=== PATIENT | male | born 1930 | race Asian ===

== ENCOUNTER 2016-04-12 04:54 | Inpatient (IN) | payer MEDICARE, OTHER ==
[~2016-04-12] VITALS: Ht 165.1 cm; Wt 61.2 kg
[2016-04-12] MEDS ORDERED: MECLIZINE HCL12.5 MG ORAL (05:03)
[2016-04-12] MEDS ORDERED: METFORMIN HCL500 M1 ORAL (05:03)
[2016-04-12] MEDS ORDERED: DICYCLOMINE HCL10 MG PO (05:03)
[2016-04-12] MEDS ORDERED: NEXIUM40 MG ORAL (05:03)
[2016-04-12] MEDS ORDERED: JANUVIA50 MG ORAL (05:03)
[2016-04-12] MEDS ORDERED: MEGESTROL ACETA40 MG PO (05:03)
[2016-04-12] MEDS ORDERED: SINEMET 25-1001 EAC1 ORAL (05:03)
[2016-04-12] MEDS ORDERED: AMLODIPINE BESY10 MG ORAL (05:03)
--- NOTE | 2016-04-12 05:39 | Emergency Room Report ---
History of Present Illness General Chief Complaint: Multiple Trauma/Fall Source: Family Member Present Illness HPI 85 YO M with unknwon medical problems/meds BIBEMS with suspected fall out of bed. Family member states patient hit head but denies LOC. Not sure if on ASA, AC - will need records from PMD. No previous visit here. Family member has pictures on her phone of patient lying naked on floor besides bed, possibly taken after the fall out of bed. Patient is stoic, asymptomatic. No obvious signs of trauma per EMS. Allergies: Coded Allergies: No Known Allergies (Unverified , 04/12/16) Patient History Past Medical History: unable to obtain Past Surgical History: unable to obtain Pertinent Family History: unable to obtain Nursing Documentation-PMH Hx Hypertension: Yes Hx Diabetes: Yes Hx Neurological Problems: Yes - PARKINSONS Review of Systems All Other Systems: limited - unable to obtain Physical Exam Vital Signs Date Time Temp Pulse Resp B/P Pulse Ox O2 Delivery O2 Flow Rate FiO2 04/12/16 04:50 97.3 104 16 155/79 98 Room Air Sp02 EP Interpretation: reviewed, abnormal General Appearance: normal inspection, well appearing, no apparent distress, alert, GCS 15, non-toxic Head: normocephalic, atraumatic Eyes: bilateral eye EOMI, bilateral eye PERRL ENT: normal ENT inspection, hearing grossly normal, normal voice Neck: normal inspection, full range of motion, supple, no bony tend Respiratory: normal inspection, lungs clear, normal breath sounds, no respiratory distress, no retraction, no wheezing Cardiovascular #1: regular rate, rhythm, no edema Gastrointestinal: normal inspection, normal bowel sounds, non tender, soft, no guarding, no hernia Genitourinary: no CVA tenderness Musculoskeletal: normal inspection, back normal, normal range of motion, non- tender, no calf tenderness, pelvis stable, Gil's Sign negative Neurologic: normal inspection, alert, oriented x3, responsive, 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 I attest that this information is true, accurate and complete to the best of my knowledge. I understand that any falsification, omission, or concealment of material fact may subject me to administrative, civil, or criminal liability. This patient warrants hospital admission for extreme of age and has a condition that cannot be treated as outpatient. Diagnostic Impression: Primary Impression: Fall Qualified Codes: W19.XXXA - Unspecified fall, initial encounter Additional Impressions: Leukocytosis Qualified Codes: D72.829 - Elevated white blood cell count, unspecified Hypokalemia ER Course Fall out of bed. Unknown LOC or meds. Or precipitating symptoms Vitals notable for mild tachycardia, hypertension. Afebrile. No obvious trauma on exam Will do CT head, CXR, hip/pelvis and basic labs with ECG EKG Diagnostic Results Rate: normal Rhythm: NSR ST Segments: no acute changes ASA given to the pt in ED: No Rhythm Strip Diag. Results EP Interpretation: yes Rate: 90 Rhythm: NSR, no PVC's, no ectopy Chest X-Ray Diagnostic Results EP Interpretation: Yes Findings: no consolidation, no effusion, no pneumothorax, no acute cardiopulmonary disease Number of Views: 1 Other Impression Pelvis 1 view ED interpretation No acute fx, dislocation or soft tissue injury Hip right 2 view ED interpretation No acute fx, dislocation or soft tissue injury Hip left 2 view ED interpretation No acute fx, dislocation or soft tissue injury Reevaluation Time: 05:55 Last Vital Signs Date Time Temp Pulse Resp B/P Pulse Ox O2 Delivery O2 Flow Rate FiO2 04/12/16 04:50 97.3 104 16 155/79 98 Room Air Status: improved Reevaluation Impression CT head, Xrays of hip/pelvis and CXR unremarkable for acute traumatic process Labs: Leuks 14, hypoK A: Fall, unknown mechanism. ?infection as cause K repleted UA: with +LE, WBCs. No nitrites. Possible source of leukocytosis? Empiric Levoflox given in ED to cover infection. Endorsed to Dr Lopez at 630am for med/surg admission Disposition: ADMITTED INPATIENT Condition: Serious NOEMY SAMUEL M.D. Apr 12, 2016 05:39
[2016-04-12 05:52] LABS: MEAN CORPUSCULAR HEMOGLOBIN 30.7 PG (27.0-31.0); MEAN CORPUSCULAR HGB CONC 34.5 G/DL (32.0-36.0); MEAN CORPUSCULAR VOLUME 89 FL (80-99); MEAN PLATELET VOLUME 6.1 FL (6.5-10.1); PLATELET COUNT 409 K/UL (150-450); RED BLOOD COUNT 4.71 M/UL (4.70-6.10); RED CELL DISTRIBUTION WIDTH 11.8 % (11.6-14.8); WHITE BLOOD COUNT 14.1 K/UL (4.8-10.8)
[2016-04-12 05:53] VITALS: BP 144/76
[2016-04-12 06:11] LABS: TROPONIN I < 0.30 ng/mL (<=0.30)
[2016-04-12 06:14] LABS: ALANINE AMINOTRANSFERASE 11 U/L (3-41); ALBUMIN/GLOBULIN RATIO 1.3 (1.0-2.7); ANION GAP 18 (5-15); ASPARTATE AMINO TRANSFERASE 22 U/L (5-40); CALCIUM 8.7 mg/dL (8.6-10.2); CARBON DIOXIDE 28 mEQ/L (20-30); CHLORIDE 88 mEQ/L (98-107); CREATININE 0.9 mg/dL (0.7-1.2); HEMOLYSIS 3; POTASSIUM 2.9 mEQ/L (3.4-4.9); SODIUM 134 mEQ/L (135-145); TOTAL PROTEIN 5.9 g/dL (6.6-8.7)
[2016-04-12 06:30] LABS: BILIRUBIN,DIRECT 0.3 mg/dL (0.1-0.3)
[2016-04-12 06:52] LABS: CKMB 4.2 ng/mL (< 6.7)
[2016-04-12] MEDS ORDERED: Mylanta II UD 30ml ORAL PRN (07:00)
[2016-04-12] MEDS ORDERED: Miralax 17gm pkt ORAL PRN (07:00)
[2016-04-12] MEDS ORDERED: LORazepam Inj 2mg/ml 1ml IV PRN (07:00)
[2016-04-12] MEDS ORDERED: Zolpidem 5mg tab ORAL PRN (07:00)
[2016-04-12 07:36] LABS: APPEARANCE,URINE CLEAR; KETONES,URINE 3+ (NEGATIVE); LEUKOCYTE ESTERASE ,URINE 1+ (NEGATIVE); NITRITE,URINE NEGATIVE (NEGATIVE); PH,URINE 8 (4.5-8.0); PROTEIN,URINE 1+ (NEGATIVE); UROBILINOGEN,URINE 1 MG/DL (0.0-1.0)
[2016-04-12 07:47] LABS: BACTERIA,URINE FEW /HPF; SQUAMOUS EPITHELIAL CELL,UR OCCASIONAL /LPF (NONE/OCC)
[2016-04-12 08:00] VITALS: BP 145/78
[2016-04-12] MEDS: Sinemet 25/100 tab ORAL SCH ×3 (08:51→18:15)
[2016-04-12] MEDS: Morphine Sulfate 2mg/ml Inj IVP PRN ×2 (11:06→20:55)
[2016-04-12] MEDS: NovoLOG Insulin Flexpen SUBQ SCH ×3 (11:44→20:50)
--- NOTE | 2016-04-12 11:47 | Diagnostic Imaging Report ---
Indication: PAIN, status post fall Technique: spiral acquisitions obtained through the brain. Angled axial and coronal 5 x 5 mm slices were reconstructed. No IV contrast utilized. Radiation dose was minimized using automated exposure control Total dose length product 1523 mGycm. CTDIvol(s) 70 mGy Comparison: none FINDINGS: No acute hemorrhage or edema. No mass effect or midline shift. There is age-related enlargement of the ventricles and extra axial CSF spaces. There is periventricular deep white matter ischemic change. Normal dixon-white differentiation. Visualized orbits are unremarkable. Visualized sinuses are unremarkable. Intact calvarium. IMPRESSION: Chronic and age-related changes. Negative for acute intracranial bleed or mass effect This agrees with the preliminary interpretation provided overnight by [facility] service. The CT scanner at [facility] is accredited by the [employer] and the scans are performed using protocols designed to limit radiation exposure to as low as reasonably achievable to attain images of sufficient resolution adequate for diagnostic evaluation
[2016-04-12 12:00] VITALS: BP 132/77
--- NOTE | 2016-04-12 12:04 | Diagnostic Imaging Report ---
Indication: PAIN Technique: One view of the chest Comparison: none Findings: No acute infiltrates, effusions, or congestion. Tortuous calcified aorta. Normal heart size. Upper mediastinum unremarkable. Impression: No acute process.
--- NOTE | 2016-04-12 12:28 | Diagnostic Imaging Report ---
Indication: TRAUMA, fall Technique: One view of the pelvis, 2 views of both hips Comparison: None Findings: No acute fractures. No dislocations. The joint spaces are preserved. Bones are somewhat osteoporotic. Impression: Negative Note, however, that in elderly osteopenic patients, nondisplaced fractures can easily be occult. Consider cross-sectional imaging if there is high clinical suspicion
[2016-04-12] MEDS: Analgesic Balm 15gm TOPIC SCH ×3 (14:33→20:47)
[2016-04-12 16:00] VITALS: BP 138/74
--- NOTE | 2016-04-12 16:29 | Consultation ---
History of Present Illness General Date patient seen: Apr 12, 2016 Chief Complaint: Multiple Trauma/Fall Referring physician: Dr. Flores Reason for Consultation: Inpatient management Present Illness HPI 85 year old female with hx of DM, dementia, Parkinson, living at home, was taken by paramedics to [facility] with CC of potential fall and ALOC. Pt has multple xrays in ER ruling out any fracture and admitted for ALOC and leukocytosis, electrolyte abnormalities and increased weakness. Allergies: Coded Allergies: No Known Allergies (Unverified , 04/12/16) Medication History Scheduled Amlodipine Besylate* (Amlodipine Besylate*), 10 MG ORAL DAILY, (Reported) Carbidopa/Levodopa 25-100 Mg* (Sinemet 25-100 Mg Tablet*), 1 TAB ORAL THREE TIMES A DAY, (Reported) Dicyclomine Hcl* (Dicyclomine Hcl*), 10 MG PO BID, (Reported) Esomeprazole Magnesium (Nexium), 40 MG ORAL DAILY, (Reported) Meclizine Hcl* (Meclizine*), 12.5 MG ORAL THREE TIMES A DAY, (Reported) Metformin Hcl* (Metformin Hcl*), 500 MG ORAL DAILY, (Reported) Sitagliptin (Januvia), 50 MG ORAL DAILY, (Reported) Miscellaneous Medications Megestrol Acetate (Megestrol Acetate), 40 MG PO, (Reported) Patient History Healthcare decision maker Resuscitation status Full Code Advanced Directive on File Past Medical/Surgical History Past Medical/Surgical History: (1) Diabetes (2) Parkinson disease (3) Dementia Review of Systems All Other Systems: negative except mentioned in HPI Physical Exam Lines, tubes and drains: peripheral HEENT: normocephalic, anicteric Neck: non-tender, normal alignment Respiratory/Chest: chest wall non-tender, lungs clear Cardiovascular/Chest: normal peripheral pulses, regular rhythm Abdomen: normal bowel sounds, non tender Genitourinary/Rectal: normal genital exam Last 24 Hour Vital Signs Date Time Temp Pulse Resp B/P Pulse Ox O2 Delivery O2 Flow Rate FiO2 04/12/16 12:00 97.0 82 19 132/77 95 Room Air 04/12/16 11:36 97.9 04/12/16 08:51 92 139/74 04/12/16 08:00 97.9 93 18 145/78 97 Room Air 04/12/16 07:31 92 19 139/74 97 Room Air 04/12/16 05:53 97.3 85 16 144/76 96 Room Air 04/12/16 04:50 97.3 104 16 155/79 98 Room Air Laboratory Tests Test 04/12/16 04:50 04/12/16 05:41 04/12/16 07:15 White Blood Count 14.1 K/UL (4.8-10.8) H Red Blood Count 4.71 M/UL (4.70-6.10) Hemoglobin 14.5 G/DL (14.2-18.0) Hematocrit 41.9 % (42.0-52.0) L Mean Corpuscular Volume 89 FL (80-99) Mean Corpuscular Hemoglobin 30.7 PG (27.0-31.0) Mean Corpuscular Hemoglobin Concent 34.5 G/DL (32.0-36.0) Red Cell Distribution Width 11.8 % (11.6-14.8) Platelet Count 409 K/UL (150-450) Mean Platelet Volume 6.1 FL (6.5-10.1) L Neutrophils (%) (Auto) % (45.0-75.0) Lymphocytes (%) (Auto) % (20.0-45.0) Monocytes (%) (Auto) % (1.0-10.0) Eosinophils (%) (Auto) % (0.0-3.0) Basophils (%) (Auto) % (0.0-2.0) Sodium Level 134 mEQ/L (135-145) L Potassium Level 2.9 mEQ/L (3.4-4.9) L Chloride Level 88 mEQ/L (98-107) L Carbon Dioxide Level 28 mEQ/L (20-30) Anion Gap 18 (5-15) H Blood Urea Nitrogen 10 mg/dL (7-23) Creatinine 0.9 mg/dL (0.7-1.2) Estimat Glomerular Filtration Rate mL/min (>60) Glucose Level 147 mg/dL (74-106) H Calcium Level 8.7 mg/dL (8.6-10.2) Total Bilirubin 1.3 mg/dL (0.0-1.2) H Direct Bilirubin 0.3 mg/dL (0.1-0.3) Aspartate Amino Transf (AST/SGOT) 22 U/L (5-40) Alanine Aminotransferase (ALT/SGPT) 11 U/L (3-41) Alkaline Phosphatase 93 U/L (40-129) Total Creatine Kinase 115 U/L (38-174) Creatine Kinase MB 4.2 ng/mL (< 6.7) Creatine Kinase MB Relative Index 3.6 Troponin I < 0.30 ng/mL (<=0.30) Total Protein 5.9 g/dL (6.6-8.7) L Albumin 3.4 g/dL (3.5-5.2) L Globulin 2.5 g/dL Albumin/Globulin Ratio 1.3 (1.0-2.7) Urine Color Yellow Urine Appearance Clear Urine pH 8 (4.5-8.0) Urine Specific [place] 1.010 (1.005-1.035) Urine Protein 1+ (NEGATIVE) H Urine Glucose (UA) Negative (NEGATIVE) Urine Ketones 3+ (NEGATIVE) H Urine Occult Blood 1+ (NEGATIVE) H Urine Nitrite Negative (NEGATIVE) Urine Bilirubin Negative (NEGATIVE) Urine Urobilinogen 1 MG/DL (0.0-1.0) H Urine Leukocyte Esterase 1+ (NEGATIVE) H Urine RBC 2-4 /HPF (0 - 0) H Urine WBC 5-10 /HPF (0 - 0) H Urine Squamous Epithelial Cells Occasional /LPF Urine Bacteria Few /HPF (NONE) Height (Feet): 5 Height (Inches): 5.00 Weight (Pounds): 135 Medications Current Medications Medications (Trade) Dose Ordered Sig/Aaron Route PRN Reason Start Time Stop Time Status Last Admin Dose Admin Acetaminophen (Tylenol) 650 mg Q4H PRN ORAL fever 04/12/16 07:00 05/12/16 06:59 Al Hydroxide/Mg Hydroxide (Mylanta II) 30 ml Q6H PRN ORAL dyspepsia 04/12/16 07:00 05/12/16 06:59 Amlodipine Besylate (Norvasc) 10 mg DAILY ORAL 04/12/16 09:00 05/12/16 08:59 04/12/16 08:51 Carbidopa/Levodopa (Sinemet 25/100) 1 ea THREE TIMES A DAY ORAL 04/12/16 09:00 05/12/16 08:59 04/12/16 13:49 Dextrose STAT PRN IV Hypoglycemia 04/12/16 07:00 05/12/16 06:59 Insulin Aspart (NovoLOG) BEFORE MEALS AND HS SUBQ 04/12/16 11:30 05/12/16 11:29 04/12/16 11:44 Lorazepam (Ativan 2mg/ml 1ml) 0.5 mg Q4H PRN IV For Anxiety 04/12/16 07:00 04/19/16 06:59 Menthol/Methyl Salicylate (Bengay) 1 applic FOUR TIMES A DAY TOPIC 04/12/16 14:00 05/12/16 13:59 04/12/16 14:33 Morphine Sulfate (Morphine Sulfate) 1 mg Q4H PRN IVP For Pain 04/12/16 07:00 04/19/16 06:59 04/12/16 11:06 Ondansetron HCl (Zofran) 4 mg Q6H PRN IVP Nausea & Vomiting 04/12/16 07:00 05/12/16 06:59 Polyethylene Glycol (Miralax) 17 gm HSPRN PRN ORAL Constipation 04/12/16 07:00 05/12/16 06:59 Potassium Chloride/Sodium Chloride (KCl/Sodium Chloride 1000ml bag) 1,015 ml @ 75 mls/hr [id number] IV 04/12/16 09:00 05/12/16 08:59 04/12/16 09:05 Zolpidem Tartrate (Ambien) 5 mg HSPRN PRN ORAL Insomnia 04/12/16 07:00 05/12/16 06:59 Assessment/Plan Problem List: (1) Leukocytosis ICD Codes: D72.829 - Elevated white blood cell count, unspecified SNOMED: 301523353, [id number] Qualifiers: Qualified Codes: D72.829 - Elevated white blood cell count, unspecified (2) Fall ICD Codes: W19.XXXA - Unspecified fall, initial encounter SNOMED: 2753098, [id number] Qualifiers: Qualified Codes: W19.XXXA - Unspecified fall, initial encounter (3) Hypokalemia ICD Codes: E87.6 - Hypokalemia SNOMED: 47559455 (4) Parkinson disease ICD Codes: G20 - Parkinson's disease SNOMED: 40768701 (5) Diabetes ICD Codes: E11.9 - Type 2 diabetes mellitus without complications SNOMED: 72485556 (6) Dementia ICD Codes: F03.90 - Unspecified dementia without behavioral disturbance SNOMED: 14487688 Assessment/Plan pt/ot check cultures empiric antibiotics swallow study f/u electrolytes IV fluids supplement electrolytes dvt prophylaxis sliding scale VAMSI LEMONS Apr 12, 2016 16:29
--- NOTE | 2016-04-12 18:43 | History & Physical ---
History and Physical History & Physicial Dictated for Int Med-Dr Lopez no. [id number]. TREVA CAMERON Apr 12, 2016 18:43
[2016-04-12 19:00] VITALS: BP 152/103
--- NOTE | 2016-04-12 22:58 | History and Physical Report ---
DATE OF ADMISSION: 04/12/2016 ATTENDING PHYSICIAN: Toño Lopez M.D. CHIEF COMPLAINT: The patient is an 85-year-old, male, who presents with chief complaint of syncopal episode. HISTORY OF PRESENT ILLNESS: The patient apparently had a syncopal episode this morning. The patient fell out of his bed. The patient was transported to [facility] via EMS. The patient was admitted for syncopal episode to rule out cerebrovascular accident versus acute coronary syndrome. PAST MEDICAL HISTORY: Significant for, 1. Type 2 diabetes. 2. Hypertension. 3. Parkinson's disease. PAST SURGICAL HISTORY: Unable to assess. CURRENT MEDICATIONS: 1. Amlodipine 10 mg one tablet p.o. daily. 2. Sinemet 25/100 mg one tablet p.o. 3 times daily. 3. Nexium 40 mg one tablet p.o. daily. 4. Meclizine 12.5 mg one tablet p.o. 3 times daily. 5. Megace 40 mg one tablet p.o. daily. 6. Metformin 500 mg one tablet p.o. daily. 7. Januvia 50 mg one tablet p.o. daily. ALLERGIES: No known drug allergies. SOCIAL HISTORY: The patient is . The patient denies tobacco or alcohol use. REVIEW OF SYSTEMS: Constitutional: The patient denies weight loss or weight gain. The patient denies fevers or chills. HEENT: The patient denies ear or throat pain. Cardiovascular: The patient denies palpitations or chest pain. Chest: The patient denies wheeze or shortness of breath. Abdominal: The patient denies nausea, vomiting, diarrhea, or constipation. Genitourinary: The patient denies dysuria or increased frequency of urination. Neuromuscular: The patient denies seizures or generalized weakness. The patient does have a history of syncopal episode as above. PHYSICAL EXAMINATION: VITAL SIGNS: Temperature 97.9 degrees, pulse 93, respirations 18, and blood pressure 145/78. GENERAL: The patient is a well-developed, well-nourished, thin appearing, male, in no apparent distress. HEENT: Eyes, pupils are equal and responsive to light and accommodation. Extraocular movements are intact. NECK: Supple without lymphadenopathy. CHEST: Lungs are clear to auscultation bilaterally without wheezes or rales. CARDIOVASCULAR: Regular rhythm and rate. S1 and S2 are normal without murmurs, rubs, or gallops. ABDOMEN: Soft, nontender, and nondistended. Positive bowel sounds. No hepatosplenomegaly. Currently, no rebound or guarding. EXTREMITIES: Negative for clubbing, cyanosis, or edema. RECTAL/GENITAL: Refused. NEUROLOGIC: Cranial nerves II through XII are grossly intact without focal deficits. Motor strength is 5/5 bilaterally. Deep tendon reflexes are 2+ plantar. LABORATORY STUDIES: WBC 14.1, hemoglobin 14.5, hematocrit 41.9, and platelets 409,000. Sodium 134, potassium 2.9, chloride 88, CO2 28, BUN 10, creatinine 0.9, and glucose 147. Troponin is less than 0.3. Urinalysis showed 3+ ketones, 1+ occult blood, with 5 to 10 WBCs. ASSESSMENT: This is an 85-year-old, male. 1. Syncopal episode. 2. Diabetes type 2. 3. Hypertension. 4. Parkinson's disease. 5. Hypokalemia. TREATMENT: 1. Syncopal episode. A CT of the head is pending. Syncope may be secondary to acute coronary syndrome versus acute stroke. We will await head CT results. 2. Diabetes type 2. Continue Januvia and metformin as above. A Humalog sliding scale has been instituted. 3. Hypertension. Continue Norvasc as above. 4. Parkinson's. Continue Sinemet as above. 5. Hypokalemia. The patient is currently receiving potassium supplementation. Parker Flores M.D. DR: EILEEN JOB#: [id number] CC:
[2016-04-13] VITALS: BP 139/76
--- NOTE | 2016-04-13 02:58 | Cardiology Report ---
APPROVED REPORT EKG Measurement Heart [id number] VT [id number] Normal sinus rhythm Normal ECG
[2016-04-13 04:00] VITALS: BP 145/87
[2016-04-13] MEDS: NovoLOG Insulin Flexpen SUBQ SCH ×4 (05:52→20:25)
[2016-04-13 07:06] LABS: EOSINOPHILS % (AUTO) 19.7 % (0.0-3.0); LYMPHOCYTES % (AUTO) 15.9 % (20.0-45.0); MEAN CORPUSCULAR HEMOGLOBIN 31.6 PG (27.0-31.0); MEAN CORPUSCULAR HGB CONC 35.2 G/DL (32.0-36.0); MEAN CORPUSCULAR VOLUME 90 FL (80-99); MEAN PLATELET VOLUME 5.7 FL (6.5-10.1); MONOCYTES % (AUTO) 6.1 % (1.0-10.0); NEUTROPHILS % (AUTO) 57.3 % (45.0-75.0); PLATELET COUNT 349 K/UL (150-450); RED BLOOD COUNT 4.14 M/UL (4.70-6.10); RED CELL DISTRIBUTION WIDTH 12.3 % (11.6-14.8); WHITE BLOOD COUNT 12.6 K/UL (4.8-10.8)
[2016-04-13 07:34] LABS: TROPONIN I < 0.30 ng/mL (<=0.30)
[2016-04-13 07:48] LABS: THYROID STIMULATING HORMONE 0.666 uIU/mL (0.300-4.500)
[2016-04-13 08:02] LABS: ALANINE AMINOTRANSFERASE 5 U/L (3-41); ALBUMIN/GLOBULIN RATIO 1.4 (1.0-2.7); ANION GAP 17 (5-15); ASPARTATE AMINO TRANSFERASE 18 U/L (5-40); CARBON DIOXIDE 24 mEQ/L (20-30); CHLORIDE 97 mEQ/L (98-107); CHOLESTEROL 166 mg/dL (< 200); CHOLESTEROL/HDL RATIO 4.6 (3.3-4.4); CREATININE 0.8 mg/dL (0.7-1.2); HEMOLYSIS 6; LDL CHOLESTEROL (CALC.) 103 mg/dL (60-99); SODIUM 138 mEQ/L (135-145); TOTAL PROTEIN 4.7 g/dL (6.6-8.7)
[2016-04-13 08:10] VITALS: BP 138/77
[2016-04-13] MEDS: Analgesic Balm 15gm TOPIC SCH ×4 (08:24→20:35)
[2016-04-13] MEDS: Sinemet 25/100 tab ORAL SCH ×3 (08:24→18:03)
[2016-04-13] MEDS: Morphine Sulfate 2mg/ml Inj IVP PRN ×3 (08:24→20:54)
--- NOTE | 2016-04-13 09:19 | Consultation ---
Consult Note Consult Note ID CONSULT: Jonnie# [id number] Assessment/Plan ASSESSMENT: 85 y/o male with: // Mild pyuria, bacteruria, possible UTI - no UCx sent // Leukocytosis - mild, improved, afebrile, possibly stress-related - CXR: NAF, doppler(-) DVT // SP fall - CT Head: Chronic and age-related changes. Negative for acute intracranial bleed or mass effect - B hip XR: Negative. Note, however, that in elderly osteopenic patients, nondisplaced fractures can easily be occult. // DM2 // Parkinson's // NKDA // DNR PLAN: - continue empiric levaquin d# 1 pending cultures - send delayed UCx - f/u blood cultures - monitor CBC, temperatures - monitor BMP - fall precautions Thanks! Will follow TALIB PATHAK Apr 13, 2016 09:18
[2016-04-13] MEDS ORDERED: Tubing IV Secondary IV ONE (09:32)
--- NOTE | 2016-04-13 10:48 | Consultation ---
DATE OF CONSULTATION: 04/13/2016 INFECTIOUS DISEASE CONSULTATION: REQUESTING PHYSICIAN: Toño Lopez M.D. REASON FOR CONSULTATION: Leukocytosis. HISTORY OF PRESENT ILLNESS: This 85-year-old diabetic and demented male admitted on 04/12/2016 status post fall from bed. A CT of the head showed no acute findings and bilateral hip x-rays were negative for fracture. He has associated mild leukocytosis and no fevers. Leukocytosis has improved this morning. Urinalysis suggests possible UTI with mild pyuria and bacteriuria. No urine culture was sent. Blood cultures are pending. Chest x-ray showed no acute findings and Doppler ultrasound is negative for DVT. He has been started on empiric Levaquin and ID now consulted to assist in management. PAST MEDICAL HISTORY: 1. Parkinson's dementia. 2. Diabetes. PAST SURGICAL HISTORY: Unknown. MEDICATIONS: 1. Levaquin day #1. 2. Sinemet. 3. Norvasc. ALLERGIES: No known drug allergies. SOCIAL HISTORY: The patient lives locally and has family involved in his care. FAMILY HISTORY: Unknown. REVIEW OF SYSTEMS: Unable to obtain. PHYSICAL EXAMINATION: VITAL SIGNS: Maximum temperature 97.9 degrees, blood pressure 138/77, heart rate in the 90s, respiratory rate 20, and saturating 98% on room air. GENERAL: No apparent distress. Nontoxic appearing. CARDIOVASCULAR: Regular rate and rhythm. No murmurs. PULMONARY: Clear to auscultation bilaterally. ABDOMEN: Bowel sounds present. Soft, nondistended, and nontender. EXTREMITIES: No edema. SKIN: No rash. LABORATORY DATA: White blood cell count 12.6, decreased from 14.1, hemoglobin 13.1, and platelets 349,000. Sodium 138, potassium 4, chloride 97, bicarbonate 24, BUN 8, and creatinine 0.8. Liver function tests within normal limits. Troponin negative x2. MICROBIOLOGY: On 04/12/2016, blood culture pending. IMAGIN. On 04/12/2016, bilateral lower extremity Doppler ultrasound negative for DVT. 2. On 04/12/2016, bilateral hip x-rays negative for fracture. 3. On 04/12/2016, chest x-ray no acute findings. 4. On 04/12/2016, CT of the head with chronic age related changes. No acute findings. ASSESSMENT: 1. Mild pyuria and bacteriuria, possible urinary tract infection. Urine culture was sent. 2. Leukocytosis, mild and improved and afebrile. May be stress related. No evidence of pneumonia on chest x-ray and a Doppler ultrasound is negative for deep venous thrombosis. 3. Status post fall. No evidence of hip fracture or intracranial process. 4. Diabetes type 2. 5. Parkinson's. 6. No known drug allergies. 7. Do Not Resuscitate. PLAN: 1. Continue empiric Levaquin day #1 for now pending cultures. 2. Send delayed urine culture. 3. Follow up blood cultures. 4. Monitor CBC and temperatures. 5. Monitor BMP. 6. Fall precautions. Thank you. We will follow. Howard Reyes M.D. DR: Saima JOB#: [id number] CC: Toño Lopez M.D.; Fax#: [phone] Wakefield M.D; Fax#: [phone]
[2016-04-13 12:00] VITALS: BP 131/84
--- NOTE | 2016-04-13 12:43 | Pulmonology Progress Note ---
Assessment/Plan Problems: (1) Leukocytosis (2) Fall (3) Hypokalemia (4) Parkinson disease (5) Diabetes (6) Dementia Assessment/Plan Assessment/Plan pt/ot check cultures empiric antibiotics swallow study f/u electrolytes IV fluids supplement electrolytes dvt prophylaxis sliding scale Subjective ROS Limited/Unobtainable: Yes Constitutional: Reports: anorexia, fatigue Neurologic: Reports: confusion, weakness Allergies: Coded Allergies: No Known Allergies (Unverified , 04/12/16) Objective Last 24 Hour Vital Signs Date Time Temp Pulse Resp B/P Pulse Ox O2 Delivery O2 Flow Rate FiO2 04/13/16 12:00 97.7 85 18 131/84 97 Room Air 04/13/16 08:54 98.4 04/13/16 08:24 97 138/77 04/13/16 08:10 98.4 97 20 138/77 98 Room Air 04/13/16 04:00 97.9 98 18 145/87 98 Room Air 04/13/16 00:00 97.7 87 18 139/76 94 Room Air 04/12/16 19:00 97.3 96 18 152/103 95 Room Air 04/12/16 16:00 97.3 74 20 138/74 96 Room Air Intake and Output 04/12/16 04/13/16 19:00 07:00 Intake Total 1185 ml 1110 ml Output Total 875 ml Balance 1185 ml 235 ml Intake Oral 360 ml 360 ml IV Total 825 ml 750 ml Output Urine Total 875 ml General Appearance: no acute distress HEENT: normocephalic, atraumatic, PERRL Respiratory/Chest: chest wall non-tender, decreased breath sounds, accessory muscle use Cardiovascular: normal peripheral pulses, normal rate, regular rhythm Abdomen: normal bowel sounds, soft, non tender, no organomegaly, non distended Genitourinary: normal external genitalia Extremities: no cyanosis Skin: no rash, lesions Neurologic/Psychiatric: tankroom tender II-XII grossly normal, responsive, disoriented Laboratory Tests 04/13/16 04:30: White Blood Count 12.6H, Red Blood Count 4.14L, Hemoglobin 13.1L, Hematocrit 37.1L, Mean Corpuscular Volume 90, Mean Corpuscular Hemoglobin 31.6H, Mean Corpuscular Hemoglobin Concent 35.2, Red Cell Distribution Width 12.3, Platelet Count 349, Mean Platelet Volume 5.7L, Neutrophils (%) (Auto) 57.3, Lymphocytes ( %) (Auto) 15.9L, Monocytes (%) (Auto) 6.1, Eosinophils (%) (Auto) 19.7H, Basophils (%) (Auto) 1.0, Sodium Level 138, Potassium Level 4.0, Chloride Level 97L, Carbon Dioxide Level 24, Anion Gap 17H, Blood Urea Nitrogen 8, Creatinine 0.8, Estimat Glomerular Filtration Rate , Glucose Level 131H, Calcium Level 8.0L , Total Bilirubin 0.9, Aspartate Amino Transf (AST/SGOT) 18, Alanine Aminotransferase (ALT/SGPT) 5, Alkaline Phosphatase 81, Troponin I < 0.30, Total Protein 4.7L, Albumin 2.8L, Globulin 1.9, Albumin/Globulin Ratio 1.4, Triglycerides Level 134, Cholesterol Level 166, LDL Cholesterol 103H, HDL Cholesterol 36, Cholesterol/HDL Ratio 4.6H, Thyroid Stimulating Hormone (TSH) 0.666 Current Medications Medications (Trade) Dose Ordered Sig/Aaron Route PRN Reason Start Time Stop Time Status Last Admin Dose Admin Acetaminophen (Tylenol) 650 mg Q4H PRN ORAL fever 04/12/16 07:00 05/12/16 06:59 Al Hydroxide/Mg Hydroxide (Mylanta II) 30 ml Q6H PRN ORAL dyspepsia 04/12/16 07:00 05/12/16 06:59 Amlodipine Besylate (Norvasc) 10 mg DAILY ORAL 04/12/16 09:00 05/12/16 08:59 04/13/16 08:24 Carbidopa/Levodopa (Sinemet 25/100) 1 ea THREE TIMES A DAY ORAL 04/12/16 09:00 05/12/16 08:59 04/13/16 08:24 Dextrose STAT PRN IV Hypoglycemia 04/12/16 07:00 05/12/16 06:59 Insulin Aspart (NovoLOG) BEFORE MEALS AND HS SUBQ 04/12/16 11:30 05/12/16 11:29 04/13/16 11:38 Levofloxacin (Levaquin) 100 ml @ 100 mls/hr Q24H IVPB 04/13/16 06:00 04/20/16 05:59 04/13/16 05:02 Lorazepam (Ativan 2mg/ml 1ml) 0.5 mg Q4H PRN IV For Anxiety 04/12/16 07:00 04/19/16 06:59 Menthol/Methyl Salicylate 1 applic 1 applic FOUR TIMES A DAY TOPIC 04/12/16 14:00 05/12/16 13:59 04/13/16 08:24 Morphine Sulfate (Morphine Sulfate) 1 mg Q4H PRN IVP For Pain 04/12/16 07:00 04/19/16 06:59 04/13/16 08:24 Ondansetron HCl (Zofran) 4 mg Q6H PRN IVP Nausea & Vomiting 04/12/16 07:00 05/12/16 06:59 Polyethylene Glycol (Miralax) 17 gm HSPRN PRN ORAL Constipation 04/12/16 07:00 05/12/16 06:59 04/12/16 22:17 Potassium Chloride/Sodium Chloride (KCl/Sodium Chloride 1000ml bag) 1,015 ml @ 75 mls/hr [id number] IV 04/12/16 09:00 05/12/16 08:59 04/13/16 12:25 Zolpidem Tartrate (Ambien) 5 mg HSPRN PRN ORAL Insomnia 04/12/16 07:00 05/12/16 06:59 04/12/16 22:17 VAMSI LEMONS Apr 13, 2016 12:43
--- NOTE | 2016-04-13 14:44 | Internal Med Progress Note ---
Subjective Date of Service: Apr 13, 2016 Physician Name CameronTreva Attending Physician Toño Lopez MD Current Medications Medications (Trade) Dose Ordered Sig/Aaron Route PRN Reason Start Time Stop Time Status Last Admin Dose Admin Acetaminophen (Tylenol) 650 mg Q4H PRN ORAL fever 04/12/16 07:00 05/12/16 06:59 Al Hydroxide/Mg Hydroxide (Mylanta II) 30 ml Q6H PRN ORAL dyspepsia 04/12/16 07:00 05/12/16 06:59 Amlodipine Besylate (Norvasc) 10 mg DAILY ORAL 04/12/16 09:00 05/12/16 08:59 04/13/16 08:24 Carbidopa/Levodopa (Sinemet 25/100) 1 ea THREE TIMES A DAY ORAL 04/12/16 09:00 05/12/16 08:59 04/13/16 13:58 Dextrose STAT PRN IV Hypoglycemia 04/12/16 07:00 05/12/16 06:59 Insulin Aspart (NovoLOG) BEFORE MEALS AND HS SUBQ 04/12/16 11:30 05/12/16 11:29 04/13/16 11:38 Levofloxacin (Levaquin) 100 ml @ 100 mls/hr Q24H IVPB 04/13/16 06:00 04/20/16 05:59 04/13/16 05:02 Lorazepam (Ativan 2mg/ml 1ml) 0.5 mg Q4H PRN IV For Anxiety 04/12/16 07:00 04/19/16 06:59 Menthol/Methyl Salicylate 1 applic 1 applic FOUR TIMES A DAY TOPIC 04/12/16 14:00 05/12/16 13:59 04/13/16 13:58 Morphine Sulfate (Morphine Sulfate) 1 mg Q4H PRN IVP For Pain 04/12/16 07:00 04/19/16 06:59 04/13/16 08:24 Ondansetron HCl (Zofran) 4 mg Q6H PRN IVP Nausea & Vomiting 04/12/16 07:00 05/12/16 06:59 Polyethylene Glycol (Miralax) 17 gm HSPRN PRN ORAL Constipation 04/12/16 07:00 05/12/16 06:59 04/12/16 22:17 Potassium Chloride/Sodium Chloride (KCl/Sodium Chloride 1000ml bag) 1,015 ml @ 75 mls/hr [id number] IV 04/12/16 09:00 05/12/16 08:59 04/13/16 12:25 Zolpidem Tartrate (Ambien) 5 mg HSPRN PRN ORAL Insomnia 04/12/16 07:00 05/12/16 06:59 04/12/16 22:17 Allergies: Coded Allergies: No Known Allergies (Unverified , 04/12/16) ROS Limited/Unobtainable: Yes Subjective 85 YO M admitted with syncope. Now UTI. Cover for Int Joao-Dr Lopez Objective Last Vital Signs Date Time Temp Pulse Resp B/P Pulse Ox O2 Delivery O2 Flow Rate FiO2 04/13/16 12:00 97.7 85 18 131/84 97 Room Air General Appearance: thin, agitated EENT: PERRL/EOMI, normal ENT inspection Neck: non-tender, normal alignment, supple Cardiovascular: normal peripheral pulses, normal rate, regular rhythm, no gallop/murmur, no JVD Respiratory/Chest: chest wall non-tender, lungs clear, normal breath sounds, no respiratory distress, no accessory muscle use Abdomen: normal bowel sounds, non tender, soft, no organomegaly, no mass Extremities: normal range of motion, non-tender 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0-45.0) L Monocytes (%) (Auto) 6.1 % (1.0-10.0) Eosinophils (%) (Auto) 19.7 % (0.0-3.0) H Basophils (%) (Auto) 1.0 % (0.0-2.0) Sodium Level 138 mEQ/L (135-145) Potassium Level 4.0 mEQ/L (3.4-4.9) Chloride Level 97 mEQ/L (98-107) L Carbon Dioxide Level 24 mEQ/L (20-30) Anion Gap 17 (5-15) H Blood Urea Nitrogen 8 mg/dL (7-23) Creatinine 0.8 mg/dL (0.7-1.2) Estimat Glomerular Filtration Rate mL/min (>60) Glucose Level 131 mg/dL (74-106) H Calcium Level 8.0 mg/dL (8.6-10.2) L Total Bilirubin 0.9 mg/dL (0.0-1.2) Aspartate Amino Transf (AST/SGOT) 18 U/L (5-40) Alanine Aminotransferase (ALT/SGPT) 5 U/L (3-41) Alkaline Phosphatase 81 U/L (40-129) Troponin I < 0.30 ng/mL (<=0.30) Total Protein 4.7 g/dL (6.6-8.7) L Albumin 2.8 g/dL (3.5-5.2) L Globulin 1.9 g/dL Albumin/Globulin Ratio 1.4 (1.0-2.7) Triglycerides Level 134 mg/dL (< 150) Cholesterol Level 166 mg/dL (< 200) LDL Cholesterol 103 mg/dL (60-99) H HDL Cholesterol 36 mg/dL (> 60) Cholesterol/HDL Ratio 4.6 (3.3-4.4) H Thyroid Stimulating Hormone (TSH) 0.666 uIU/mL (0.300-4.500) Intake and Output 04/12/16 04/13/16 19:00 07:00 Intake Total 1185 ml 1110 ml Output Total 875 ml Balance 1185 ml 235 ml Intake Oral 360 ml 360 ml IV Total 825 ml 750 ml Output Urine Total 875 ml Assessment/Plan Problem List: (1) HTN (hypertension) Assessment & Plan: Cont Norvasc (2) UTI (urinary tract infection) Assessment & Plan: Cont levaquin. Await urine culture results-see ID note. (3) Syncope (4) Diabetes mellitus Assessment & Plan: Cont novolog sliding scale. (5) Parkinson disease (6) Hypokalemia Assessment & Plan: Replace potassium Status: not improved TREVA CAMERON Apr 13, 2016 14:44
[2016-04-13] MEDS ORDERED: LORazepam Inj 2mg/ml 1ml IV PRN (15:00)
[2016-04-13 16:00] VITALS: BP 147/87
[2016-04-13 20:07] VITALS: BP 143/95
[2016-04-14] VITALS (7 sets, daily range): BP systolic 127–161; BP diastolic 78–97
[2016-04-14] MEDS: NovoLOG Insulin Flexpen SUBQ SCH ×4 (06:03→20:42)
[2016-04-14 06:58] LABS: MEAN CORPUSCULAR HEMOGLOBIN 31.8 PG (27.0-31.0); MEAN CORPUSCULAR HGB CONC 35.2 G/DL (32.0-36.0); MEAN CORPUSCULAR VOLUME 91 FL (80-99); MEAN PLATELET VOLUME 5.7 FL (6.5-10.1); PLATELET COUNT 334 K/UL (150-450); RED BLOOD COUNT 3.83 M/UL (4.70-6.10); RED CELL DISTRIBUTION WIDTH 12.6 % (11.6-14.8); WHITE BLOOD COUNT 13.2 K/UL (4.8-10.8)
[2016-04-14 07:11] LABS: ANION GAP 16 (5-15); CARBON DIOXIDE 23 mEQ/L (20-30); CHLORIDE 100 mEQ/L (98-107); CREATININE 0.8 mg/dL (0.7-1.2); HEMOLYSIS 3; POTASSIUM 4.3 mEQ/L (3.4-4.9); SODIUM 139 mEQ/L (135-145)
--- NOTE | 2016-04-14 08:46 | Infectious Diseases Prog Note ---
Assessment/Plan Assessment/Plan ASSESSMENT: 85 y/o male with: // Mild pyuria, bacteruria, possible UTI - delayed UCx NGTD // Leukocytosis - mild, improved, afebrile, possibly stress-related - CXR: NAF, doppler(-) DVT // SP fall - CT Head: Chronic and age-related changes. Negative for acute intracranial bleed or mass effect - B hip XR: Negative. Note, however, that in elderly osteopenic patients, nondisplaced fractures can easily be occult. // DM2 // Parkinson's // NKDA // DNR PLAN: - continue empiric levaquin d# 2 pending cultures - f/u delayed UCx, blood cultures - monitor CBC, temperatures - monitor BMP - fall precautions Subjective Allergies: Coded Allergies: No Known Allergies (Unverified , 04/12/16) Subjective remains afebrile. persistent mild leukocytosis Objective Vital Signs Last 24 Hour Vital Signs Date Time Temp Pulse Resp B/P Pulse Ox O2 Delivery O2 Flow Rate FiO2 04/14/16 05:00 148/87 04/14/16 04:00 97.7 93 18 161/91 97 Room Air 04/14/16 00:00 97.7 96 18 152/97 96 Room Air 04/13/16 21:26 95 04/13/16 21:24 97.7 04/13/16 20:07 97.7 110 24 143/95 92 Room Air 04/13/16 16:00 97.3 104 24 147/87 92 Room Air 04/13/16 12:00 97.7 85 18 131/84 97 Room Air Height (Feet): 5 Height (Inches): 5.00 Weight (Pounds): 135 General Appearance: no acute distress Respiratory/Chest: no respiratory distress Cardiovascular: normal rate, regular rhythm Abdomen: normal bowel sounds, soft, non tender, non distended Microbiology Date/Time Source Procedure Growth Status 04/12/16 06:45 Blood Blood Culture - Preliminary NO GROWTH AFTER 24 HOURS Resulted 04/12/16 06:30 Blood Blood Culture - Preliminary NO GROWTH AFTER 24 HOURS Resulted 04/13/16 11:30 Urine,Clean Catch Urine Culture - Preliminary NO GROWTH Resulted Laboratory Tests Test 04/14/16 05:10 White Blood Count 13.2 K/UL (4.8-10.8) H Red Blood Count 3.83 M/UL (4.70-6.10) L Hemoglobin 12.2 G/DL (14.2-18.0) L Hematocrit 34.7 % (42.0-52.0) L Mean Corpuscular Volume 91 FL (80-99) Mean Corpuscular Hemoglobin 31.8 PG (27.0-31.0) H Mean Corpuscular Hemoglobin Concent 35.2 G/DL (32.0-36.0) Red Cell Distribution Width 12.6 % (11.6-14.8) Platelet Count 334 K/UL (150-450) Mean Platelet Volume 5.7 FL (6.5-10.1) L Neutrophils (%) (Auto) % (45.0-75.0) Lymphocytes (%) (Auto) % (20.0-45.0) Monocytes (%) (Auto) % (1.0-10.0) Eosinophils (%) (Auto) % (0.0-3.0) Basophils (%) (Auto) % (0.0-2.0) Neutrophils % (Manual) Pending Lymphocytes % (Manual) Pending Platelet Estimate Pending Platelet Morphology Pending Sodium Level 139 mEQ/L (135-145) Potassium Level 4.3 mEQ/L (3.4-4.9) Chloride Level 100 mEQ/L (98-107) Carbon Dioxide Level 23 mEQ/L (20-30) Anion Gap 16 (5-15) H Blood Urea Nitrogen 8 mg/dL (7-23) Creatinine 0.8 mg/dL (0.7-1.2) Estimat Glomerular Filtration Rate mL/min (>60) Glucose Level 89 mg/dL (74-106) Calcium Level 8.0 mg/dL (8.6-10.2) L Current Medications Medications (Trade) Dose Ordered Sig/Aaron Route PRN Reason Start Time Stop Time Status Last Admin Dose Admin Acetaminophen (Tylenol) 650 mg Q4H PRN ORAL fever 04/12/16 07:00 05/12/16 06:59 Al Hydroxide/Mg Hydroxide (Mylanta II) 30 ml Q6H PRN ORAL dyspepsia 04/12/16 07:00 05/12/16 06:59 Amlodipine Besylate (Norvasc) 10 mg DAILY ORAL 04/12/16 09:00 05/12/16 08:59 04/13/16 08:24 Carbidopa/Levodopa (Sinemet 25/100) 1 ea THREE TIMES A DAY ORAL 04/12/16 09:00 05/12/16 08:59 04/13/16 18:03 Dextrose STAT PRN IV Hypoglycemia 04/12/16 07:00 05/12/16 06:59 Insulin Aspart (NovoLOG) BEFORE MEALS AND HS SUBQ 04/12/16 11:30 05/12/16 11:29 04/13/16 16:51 Levofloxacin (Levaquin) 100 ml @ 100 mls/hr Q24H IVPB 04/13/16 06:00 04/20/16 05:59 04/14/16 05:12 Menthol/Methyl Salicylate 1 applic 1 applic FOUR TIMES A DAY TOPIC 04/12/16 14:00 05/12/16 13:59 04/13/16 20:35 Morphine Sulfate (Morphine Sulfate) 1 mg Q4H PRN IVP For Pain 04/12/16 07:00 04/19/16 06:59 04/13/16 20:54 Ondansetron HCl (Zofran) 4 mg Q6H PRN IVP Nausea & Vomiting 04/12/16 07:00 05/12/16 06:59 Polyethylene Glycol (Miralax) 17 gm HSPRN PRN ORAL Constipation 04/12/16 07:00 05/12/16 06:59 04/12/16 22:17 Potassium Chloride/Sodium Chloride (KCl/Sodium Chloride 1000ml bag) 1,015 ml @ 75 mls/hr [id number] IV 04/12/16 09:00 05/12/16 08:59 04/14/16 01:55 Quetiapine Fumarate (SEROquel) 25 mg BEDTIME ORAL 04/13/16 21:00 05/13/16 20:59 04/13/16 20:35 Quetiapine Fumarate (SEROquel) 25 mg Q8H PRN ORAL Agitation 04/13/16 16:15 05/13/16 16:14 Zolpidem Tartrate (Ambien) 5 mg HSPRN PRN ORAL Insomnia 04/12/16 07:00 05/12/16 06:59 04/12/16 22:17 TALIB PATHAK Apr 14, 2016 08:46
[2016-04-14] MEDS: Analgesic Balm 15gm TOPIC SCH ×4 (09:14→20:49)
[2016-04-14] MEDS: Sinemet 25/100 tab ORAL SCH ×3 (09:14→18:06)
[2016-04-14 11:39] LABS: EOSINOPHILS % (MANUAL) 17 % (0-3); LYMPHOCYTES % (MANUAL) 19 % (20-45); NEUTROPHILS % (MANUAL) 60 % (45-75); TOTAL CELLS COUNTED 100
[2016-04-14 11:40] LABS: BAND NEUTROPHILS % (MANUAL) 0 % (0-8); BASOPHILS % (MANUAL) 0 % (0-2); PLATELET ESTIMATE ADEQUATE; PLATELET MORPHOLOGY NORMAL
--- NOTE | 2016-04-14 13:32 | Internal Med Progress Note ---
Subjective Date of Service: Apr 14, 2016 Physician Name Treva Cameron Attending Physician Toño Lopez MD Current Medications Medications (Trade) Dose Ordered Sig/Aaron Route PRN Reason Start Time Stop Time Status Last Admin Dose Admin Acetaminophen (Tylenol) 650 mg Q4H PRN ORAL fever 04/12/16 07:00 05/12/16 06:59 Al Hydroxide/Mg Hydroxide (Mylanta II) 30 ml Q6H PRN ORAL dyspepsia 04/12/16 07:00 05/12/16 06:59 Amlodipine Besylate (Norvasc) 10 mg DAILY ORAL 04/12/16 09:00 05/12/16 08:59 04/14/16 09:14 Carbidopa/Levodopa (Sinemet 25/100) 1 ea THREE TIMES A DAY ORAL 04/12/16 09:00 05/12/16 08:59 04/14/16 13:05 Dextrose STAT PRN IV Hypoglycemia 04/12/16 07:00 05/12/16 06:59 Insulin Aspart (NovoLOG) BEFORE MEALS AND HS SUBQ 04/12/16 11:30 05/12/16 11:29 04/13/16 16:51 Levofloxacin (Levaquin) 100 ml @ 100 mls/hr Q24H IVPB 04/13/16 06:00 04/20/16 05:59 04/14/16 05:12 Menthol/Methyl Salicylate 1 applic 1 applic FOUR TIMES A DAY TOPIC 04/12/16 14:00 05/12/16 13:59 04/14/16 13:05 Morphine Sulfate (Morphine Sulfate) 1 mg Q4H PRN IVP For Pain 04/12/16 07:00 04/19/16 06:59 04/13/16 20:54 Ondansetron HCl (Zofran) 4 mg Q6H PRN IVP Nausea & Vomiting 04/12/16 07:00 05/12/16 06:59 Polyethylene Glycol (Miralax) 17 gm HSPRN PRN ORAL Constipation 04/12/16 07:00 05/12/16 06:59 04/12/16 22:17 Potassium Chloride/Sodium Chloride (KCl/Sodium Chloride 1000ml bag) 1,015 ml @ 75 mls/hr [id number] IV 04/12/16 09:00 05/12/16 08:59 04/14/16 01:55 Quetiapine Fumarate (SEROquel) 25 mg BEDTIME ORAL 04/13/16 21:00 05/13/16 20:59 04/13/16 20:35 Quetiapine Fumarate (SEROquel) 25 mg Q8H PRN ORAL Agitation 04/13/16 16:15 05/13/16 16:14 Zolpidem Tartrate (Ambien) 5 mg HSPRN PRN ORAL Insomnia 04/12/16 07:00 05/12/16 06:59 04/12/16 22:17 Allergies: Coded Allergies: No Known Allergies (Unverified , 04/12/16) ROS Limited/Unobtainable: Yes Subjective 85 YO M admitted with syncope. Now UTI. Cover for Int Joao-Dr Lopez Objective Last Vital Signs Date Time Temp Pulse Resp B/P Pulse Ox O2 Delivery O2 Flow Rate FiO2 04/14/16 12:00 96.1 90 18 127/86 94 Room Air Laboratory Tests Test 04/14/16 05:10 White Blood Count 13.2 K/UL (4.8-10.8) H Red Blood Count 3.83 M/UL (4.70-6.10) L Hemoglobin 12.2 G/DL (14.2-18.0) L Hematocrit 34.7 % (42.0-52.0) L Mean Corpuscular Volume 91 FL (80-99) Mean Corpuscular Hemoglobin 31.8 PG (27.0-31.0) H Mean Corpuscular Hemoglobin Concent 35.2 G/DL (32.0-36.0) Red Cell Distribution Width 12.6 % (11.6-14.8) Platelet Count 334 K/UL (150-450) Mean Platelet Volume 5.7 FL (6.5-10.1) L Neutrophils (%) (Auto) % (45.0-75.0) Lymphocytes (%) (Auto) % (20.0-45.0) Monocytes (%) (Auto) % (1.0-10.0) Eosinophils (%) (Auto) % (0.0-3.0) Basophils (%) (Auto) % (0.0-2.0) Differential Total Cells Counted 100 Neutrophils % (Manual) 60 % (45-75) Lymphocytes % (Manual) 19 % (20-45) L Monocytes % (Manual) 4 % (1-10) Eosinophils % (Manual) 17 % (0-3) H Basophils % (Manual) 0 % (0-2) Band Neutrophils 0 % (0-8) Platelet Estimate Adequate Platelet Morphology Normal Red Blood Cell Morphology Normal Sodium Level 139 mEQ/L (135-145) Potassium Level 4.3 mEQ/L (3.4-4.9) Chloride Level 100 mEQ/L (98-107) Carbon Dioxide Level 23 mEQ/L (20-30) Anion Gap 16 (5-15) H Blood Urea Nitrogen 8 mg/dL (7-23) Creatinine 0.8 mg/dL (0.7-1.2) Estimat Glomerular Filtration Rate mL/min (>60) Glucose Level 89 mg/dL (74-106) Calcium Level 8.0 mg/dL (8.6-10.2) L Microbiology Date/Time Source Procedure Growth Status 04/12/16 06:45 Blood Blood Culture - Preliminary NO GROWTH AFTER 24 HOURS Resulted 04/12/16 06:30 Blood Blood Culture - Preliminary NO GROWTH AFTER 24 HOURS Resulted 04/13/16 11:30 Urine,Clean Catch Urine Culture - Preliminary NO GROWTH Resulted Intake and Output 04/13/16 04/14/16 19:00 07:00 Intake Total 1065 ml 1405 ml Output Total 300 ml 1200 ml Balance 765 ml 205 ml Intake Oral 240 ml 440 ml IV Total 825 ml 965 ml Output Urine Total 300 ml 1200 ml Objective General Appearance: thin, agitated EENT: PERRL/EOMI, normal ENT inspection Neck: non-tender, normal alignment, supple Cardiovascular: normal peripheral pulses, normal rate, regular rhythm, no gallop/murmur, no JVD Respiratory/Chest: chest wall non-tender, lungs clear, normal breath sounds, no respiratory distress, no accessory muscle use Abdomen: normal bowel sounds, non tender, soft, no organomegaly, no mass Extremities: normal range of motion, non-tender 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 Await urine culture results-see ID note. (3) Syncope (4) Diabetes mellitus Assessment & Plan: Cont novolog sliding scale. (5) Parkinson disease (6) Hypokalemia Assessment & Plan: Replace potassium Status: not improved TREVA CAMERON Apr 14, 2016 13:32
--- NOTE | 2016-04-14 22:54 | Pulmonology Progress Note ---
Assessment/Plan Problems: (1) Leukocytosis (2) Fall (3) Hypokalemia (4) Parkinson disease (5) Diabetes (6) Dementia Assessment/Plan Assessment/Plan pt/ot check cultures empiric antibiotics swallow study f/u electrolytes IV fluids supplement electrolytes dvt prophylaxis sliding scale Subjective ROS Limited/Unobtainable: Yes Constitutional: Reports: anorexia, fatigue Respiratory: Reports: dry cough, shortness of breath Neurologic: Reports: confusion, weakness Allergies: Coded Allergies: No Known Allergies (Unverified , 04/12/16) Objective Last 24 Hour Vital Signs Date Time Temp Pulse Resp B/P Pulse Ox O2 Delivery O2 Flow Rate FiO2 04/14/16 19:00 97.5 91 20 131/81 94 Room Air 04/14/16 16:00 96.8 100 20 148/78 92 Room Air 04/14/16 12:00 96.1 90 18 127/86 94 Room Air 04/14/16 09:14 86 130/81 04/14/16 08:00 96.8 86 18 130/81 97 Room Air 04/14/16 05:00 148/87 04/14/16 04:00 97.7 93 18 161/91 97 Room Air 04/14/16 00:00 97.7 96 18 152/97 96 Room Air Intake and Output 04/13/16 04/14/16 19:00 07:00 Intake Total 1065 ml 1405 ml Output Total 300 ml 1200 ml Balance 765 ml 205 ml Intake Oral 240 ml 440 ml IV Total 825 ml 965 ml Output Urine Total 300 ml 1200 ml General Appearance: no acute distress HEENT: normocephalic, atraumatic, PERRL Respiratory/Chest: chest wall non-tender, decreased breath sounds, accessory muscle use Cardiovascular: normal peripheral pulses, normal rate, regular rhythm, no JVD Abdomen: normal bowel sounds, soft, non tender, no organomegaly, non distended Genitourinary: normal external genitalia Extremities: no cyanosis, other - redeness and swelling with signs of trauma Skin: no rash, lesions 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, no motor/sensory deficits Microbiology Date/Time Source Procedure Growth Status 04/12/16 06:45 Blood Blood Culture - Preliminary NO GROWTH AFTER 24 HOURS Resulted 04/12/16 06:30 Blood Blood Culture - Preliminary NO GROWTH AFTER 24 HOURS Resulted 04/13/16 11:30 Urine,Clean Catch Urine Culture - Preliminary NO GROWTH Resulted Laboratory Tests 04/14/16 05:10: White Blood Count 13.2H, Red Blood Count 3.83L, Hemoglobin 12.2L, Hematocrit 34.7L, Mean Corpuscular Volume 91, Mean Corpuscular Hemoglobin 31.8H, Mean Corpuscular Hemoglobin Concent 35.2, Red Cell Distribution Width 12.6, Platelet Count 334, Mean Platelet Volume 5.7L, Neutrophils (%) (Auto) , Lymphocytes (%) ( Auto) , Monocytes (%) (Auto) , Eosinophils (%) (Auto) , Basophils (%) (Auto) , Differential Total Cells Counted 100, Neutrophils % (Manual) 60, Lymphocytes % ( Manual) 19L, Monocytes % (Manual) 4, Eosinophils % (Manual) 17H, Basophils % ( Manual) 0, Band Neutrophils 0, Platelet Estimate Adequate, Platelet Morphology Normal, Red Blood Cell Morphology Normal, Sodium Level 139, Potassium Level 4.3 , Chloride Level 100, Carbon Dioxide Level 23, Anion Gap 16H, Blood Urea Nitrogen 8, Creatinine 0.8, Estimat Glomerular Filtration Rate , Glucose Level 89, Calcium Level 8.0L Current Medications Medications (Trade) Dose Ordered Sig/Aaron Route PRN Reason Start Time Stop Time Status Last Admin Dose Admin Acetaminophen (Tylenol) 650 mg Q4H PRN ORAL fever 04/12/16 07:00 05/12/16 06:59 Al Hydroxide/Mg Hydroxide (Mylanta II) 30 ml Q6H PRN ORAL dyspepsia 04/12/16 07:00 05/12/16 06:59 Amlodipine Besylate (Norvasc) 10 mg DAILY ORAL 04/12/16 09:00 05/12/16 08:59 04/14/16 09:14 Carbidopa/Levodopa (Sinemet 25/100) 1 ea THREE TIMES A DAY ORAL 04/12/16 09:00 05/12/16 08:59 04/14/16 18:06 Dextrose STAT PRN IV Hypoglycemia 04/12/16 07:00 05/12/16 06:59 Insulin Aspart (NovoLOG) BEFORE MEALS AND HS SUBQ 04/12/16 11:30 05/12/16 11:29 04/14/16 16:47 Levofloxacin (Levaquin) 100 ml @ 100 mls/hr Q24H IVPB 04/13/16 06:00 04/20/16 05:59 04/14/16 05:12 Menthol/Methyl Salicylate 1 applic 1 applic FOUR TIMES A DAY TOPIC 04/12/16 14:00 05/12/16 13:59 04/14/16 20:49 Morphine Sulfate (Morphine Sulfate) 1 mg Q4H PRN IVP For Pain 04/12/16 07:00 04/19/16 06:59 04/13/16 20:54 Ondansetron HCl (Zofran) 4 mg Q6H PRN IVP Nausea & Vomiting 04/12/16 07:00 05/12/16 06:59 Polyethylene Glycol (Miralax) 17 gm HSPRN PRN ORAL Constipation 04/12/16 07:00 05/12/16 06:59 04/12/16 22:17 Potassium Chloride/Sodium Chloride (KCl/Sodium Chloride 1000ml bag) 1,015 ml @ 75 mls/hr [id number] IV 04/12/16 09:00 05/12/16 08:59 04/14/16 15:47 Quetiapine Fumarate (SEROquel) 25 mg BEDTIME ORAL 04/13/16 21:00 05/13/16 20:59 04/14/16 20:49 Quetiapine Fumarate (SEROquel) 25 mg Q8H PRN ORAL Agitation 04/13/16 16:15 05/13/16 16:14 Zolpidem Tartrate (Ambien) 5 mg HSPRN PRN ORAL Insomnia 04/12/16 07:00 05/12/16 06:59 04/12/16 22:17 VAMSI LEMONS Apr 14, 2016 22:54
[2016-04-15] VITALS: BP 140/84
[2016-04-15 04:00] VITALS: BP 134/87
[2016-04-15] MEDS: Morphine Sulfate 2mg/ml Inj IVP PRN (05:59)
[2016-04-15] MEDS: NovoLOG Insulin Flexpen SUBQ SCH ×4 (06:00→20:33)
--- NOTE | 2016-04-15 06:52 | Infectious Diseases Prog Note ---
Assessment/Plan Assessment/Plan ASSESSMENT: 85 y/o male with: // Mild pyuria, bacteruria, possible UTI - delayed UCx NGTD // Leukocytosis - mild, improved, afebrile, - CXR: NAF, doppler(-) DVT // SP fall - CT Head: Chronic and age-related changes. Negative for acute intracranial bleed or mass effect - B hip XR: Negative. Note, however, that in elderly osteopenic patients, nondisplaced fractures can easily be occult. // DM2 // Parkinson's // NKDA // DNR PLAN: - continue empiric levaquin d# - f/u delayed UCx, blood cultures - monitor CBC, temperatures - monitor BMP - fall precautions Subjective Constitutional: Denies: anorexia, chills, drenching sweats, fatigue, fever, no symptoms, other Allergies: Coded Allergies: No Known Allergies (Unverified , 04/12/16) Objective Vital Signs Last 24 Hour Vital Signs Date Time Temp Pulse Resp B/P Pulse Ox O2 Delivery O2 Flow Rate FiO2 04/15/16 04:00 97.7 94 18 134/87 95 Room Air 04/15/16 00:00 97.5 99 18 140/84 94 Room Air 04/14/16 19:00 97.5 91 20 131/81 94 Room Air 04/14/16 16:00 96.8 100 20 148/78 92 Room Air 04/14/16 12:00 96.1 90 18 127/86 94 Room Air 04/14/16 09:14 86 130/81 04/14/16 08:00 96.8 86 18 130/81 97 Room Air Height (Feet): 5 Height (Inches): 5.00 Weight (Pounds): 135 HEENT: anicteric Respiratory/Chest: lungs clear Cardiovascular: normal rate Abdomen: no organomegaly Microbiology Date/Time Source Procedure Growth Status 04/13/16 11:30 Urine,Clean Catch Urine Culture - Preliminary NO GROWTH Resulted Current Medications Medications (Trade) Dose Ordered Sig/Aaron Route PRN Reason Start Time Stop Time Status Last Admin Dose Admin Acetaminophen (Tylenol) 650 mg Q4H PRN ORAL fever 04/12/16 07:00 05/12/16 06:59 Al Hydroxide/Mg Hydroxide (Mylanta II) 30 ml Q6H PRN ORAL dyspepsia 04/12/16 07:00 05/12/16 06:59 Amlodipine Besylate (Norvasc) 10 mg DAILY ORAL 04/12/16 09:00 05/12/16 08:59 04/14/16 09:14 Carbidopa/Levodopa (Sinemet 25/100) 1 ea THREE TIMES A DAY ORAL 04/12/16 09:00 05/12/16 08:59 04/14/16 18:06 Dextrose STAT PRN IV Hypoglycemia 04/12/16 07:00 05/12/16 06:59 Insulin Aspart (NovoLOG) BEFORE MEALS AND HS SUBQ 04/12/16 11:30 05/12/16 11:29 04/15/16 06:00 Levofloxacin (Levaquin) 100 ml @ 100 mls/hr Q24H IVPB 04/13/16 06:00 04/20/16 05:59 04/15/16 05:58 Menthol/Methyl Salicylate 1 applic 1 applic FOUR TIMES A DAY TOPIC 04/12/16 14:00 05/12/16 13:59 04/14/16 20:49 Morphine Sulfate (Morphine Sulfate) 1 mg Q4H PRN IVP For Pain 04/12/16 07:00 04/19/16 06:59 04/15/16 05:59 Ondansetron HCl (Zofran) 4 mg Q6H PRN IVP Nausea & Vomiting 04/12/16 07:00 05/12/16 06:59 Polyethylene Glycol (Miralax) 17 gm HSPRN PRN ORAL Constipation 04/12/16 07:00 05/12/16 06:59 04/12/16 22:17 Potassium Chloride/Sodium Chloride (KCl/Sodium Chloride 1000ml bag) 1,015 ml @ 75 mls/hr [id number] IV 04/12/16 09:00 05/12/16 08:59 04/15/16 04:33 Quetiapine Fumarate (SEROquel) 25 mg BEDTIME ORAL 04/13/16 21:00 05/13/16 20:59 04/14/16 20:49 Quetiapine Fumarate (SEROquel) 25 mg Q8H PRN ORAL Agitation 04/13/16 16:15 05/13/16 16:14 Zolpidem Tartrate (Ambien) 5 mg HSPRN PRN ORAL Insomnia 04/12/16 07:00 05/12/16 06:59 04/12/16 22:17 ABBY CASTELLON M.D. Apr 15, 2016 06:52
[2016-04-15 07:29] LABS: MEAN CORPUSCULAR HEMOGLOBIN 31.2 PG (27.0-31.0); MEAN CORPUSCULAR HGB CONC 34.5 G/DL (32.0-36.0); MEAN CORPUSCULAR VOLUME 91 FL (80-99); MEAN PLATELET VOLUME 6.1 FL (6.5-10.1); PLATELET COUNT 379 K/UL (150-450); RED BLOOD COUNT 4.28 M/UL (4.70-6.10); RED CELL DISTRIBUTION WIDTH 12.3 % (11.6-14.8); WHITE BLOOD COUNT 15.5 K/UL (4.8-10.8)
[2016-04-15 08:01] LABS: ANION GAP 17 (5-15); CALCIUM 8.4 mg/dL (8.6-10.2); CARBON DIOXIDE 24 mEQ/L (20-30); CHLORIDE 96 mEQ/L (98-107); CREATININE 0.8 mg/dL (0.7-1.2); HEMOLYSIS 6; POTASSIUM 4.3 mEQ/L (3.4-4.9); SODIUM 137 mEQ/L (135-145)
[2016-04-15 08:04] VITALS: BP 134/85
[2016-04-15] MEDS: Analgesic Balm 15gm TOPIC SCH ×4 (08:48→20:32)
[2016-04-15] MEDS: Sinemet 25/100 tab ORAL SCH ×3 (08:48→17:36)
[2016-04-15 10:26] LABS: BAND NEUTROPHILS % (MANUAL) 1 % (0-8); BASOPHILS % (MANUAL) 0 % (0-2); EOSINOPHILS % (MANUAL) 19 % (0-3); LYMPHOCYTES % (MANUAL) 23 % (20-45); NEUTROPHILS % (MANUAL) 48 % (45-75); PLATELET ESTIMATE ADEQUATE; TOTAL CELLS COUNTED 100
[2016-04-15 10:27] LABS: PLATELET MORPHOLOGY NORMAL
--- NOTE | 2016-04-15 11:16 | Internal Med Progress Note ---
Subjective Date of Service: Apr 15, 2016 Physician Name Parker Cameron Attending Physician Toño Lopez MD Current Medications Medications (Trade) Dose Ordered Sig/Aaron Route PRN Reason Start Time Stop Time Status Last Admin Dose Admin Acetaminophen (Tylenol) 650 mg Q4H PRN ORAL fever 04/12/16 07:00 05/12/16 06:59 Al Hydroxide/Mg Hydroxide (Mylanta II) 30 ml Q6H PRN ORAL dyspepsia 04/12/16 07:00 05/12/16 06:59 Amlodipine Besylate (Norvasc) 10 mg DAILY ORAL 04/12/16 09:00 05/12/16 08:59 04/15/16 08:48 Carbidopa/Levodopa (Sinemet 25/100) 1 ea THREE TIMES A DAY ORAL 04/12/16 09:00 05/12/16 08:59 04/15/16 08:48 Dextrose STAT PRN IV Hypoglycemia 04/12/16 07:00 05/12/16 06:59 Insulin Aspart (NovoLOG) BEFORE MEALS AND HS SUBQ 04/12/16 11:30 05/12/16 11:29 04/15/16 06:00 Levofloxacin (Levaquin) 100 ml @ 100 mls/hr Q24H IVPB 04/13/16 06:00 04/20/16 05:59 04/15/16 05:58 Menthol/Methyl Salicylate 1 applic 1 applic FOUR TIMES A DAY TOPIC 04/12/16 14:00 05/12/16 13:59 04/15/16 08:48 Morphine Sulfate (Morphine Sulfate) 1 mg Q4H PRN IVP For Pain 04/12/16 07:00 04/19/16 06:59 04/15/16 05:59 Ondansetron HCl (Zofran) 4 mg Q6H PRN IVP Nausea & Vomiting 04/12/16 07:00 05/12/16 06:59 Polyethylene Glycol (Miralax) 17 gm HSPRN PRN ORAL Constipation 04/12/16 07:00 05/12/16 06:59 04/12/16 22:17 Potassium Chloride/Sodium Chloride (KCl/Sodium Chloride 1000ml bag) 1,015 ml @ 75 mls/hr [id number] IV 04/12/16 09:00 05/12/16 08:59 04/15/16 04:33 Quetiapine Fumarate (SEROquel) 25 mg BEDTIME ORAL 04/13/16 21:00 05/13/16 20:59 04/14/16 20:49 Quetiapine Fumarate (SEROquel) 25 mg Q8H PRN ORAL Agitation 04/13/16 16:15 05/13/16 16:14 Zolpidem Tartrate (Ambien) 5 mg HSPRN PRN ORAL Insomnia 04/12/16 07:00 05/12/16 06:59 04/12/16 22:17 Allergies: Coded Allergies: No Known Allergies (Unverified , 04/12/16) ROS Limited/Unobtainable: No Constitutional: Reports: no symptoms HEENT: Reports: no symptoms Cardiovascular: Reports: no symptoms Respiratory: Reports: no symptoms Gastrointestinal/Abdominal: Reports: no symptoms Genitourinary: Reports: no symptoms Neurologic/Psychiatric: Reports: no symptoms Subjective 85 YO M admitted with syncope. Now UTI. Cover for Int Med-Dr Lopez. Less agitated today. Objective Last Vital Signs Date Time Temp Pulse Resp B/P Pulse Ox O2 Delivery O2 Flow Rate FiO2 04/15/16 08:48 94 134/85 04/15/16 08:04 97.2 18 96 Room Air Laboratory Tests Test 04/15/16 05:40 White Blood Count 15.5 K/UL (4.8-10.8) H Red Blood Count 4.28 M/UL (4.70-6.10) L Hemoglobin 13.4 G/DL (14.2-18.0) L Hematocrit 38.8 % (42.0-52.0) L Mean Corpuscular Volume 91 FL (80-99) Mean Corpuscular Hemoglobin 31.2 PG (27.0-31.0) H Mean Corpuscular Hemoglobin Concent 34.5 G/DL (32.0-36.0) Red Cell Distribution Width 12.3 % (11.6-14.8) Platelet Count 379 K/UL (150-450) Mean Platelet Volume 6.1 FL (6.5-10.1) L Neutrophils (%) (Auto) % (45.0-75.0) Lymphocytes (%) (Auto) % (20.0-45.0) Monocytes (%) (Auto) % (1.0-10.0) Eosinophils (%) (Auto) % (0.0-3.0) Basophils (%) (Auto) % (0.0-2.0) Differential Total Cells Counted 100 Neutrophils % (Manual) 48 % (45-75) Lymphocytes % (Manual) 23 % (20-45) Monocytes % (Manual) 9 % (1-10) Eosinophils % (Manual) 19 % (0-3) H Basophils % (Manual) 0 % (0-2) Band Neutrophils 1 % (0-8) Platelet Estimate Adequate Platelet Morphology Normal Red Blood Cell Morphology Normal Sodium Level 137 mEQ/L (135-145) Potassium Level 4.3 mEQ/L (3.4-4.9) Chloride Level 96 mEQ/L (98-107) L Carbon Dioxide Level 24 mEQ/L (20-30) Anion Gap 17 (5-15) H Blood Urea Nitrogen 7 mg/dL (7-23) Creatinine 0.8 mg/dL (0.7-1.2) Estimat Glomerular Filtration Rate mL/min (>60) Glucose Level 144 mg/dL (74-106) H Calcium Level 8.4 mg/dL (8.6-10.2) L Microbiology Date/Time Source Procedure Growth Status 04/13/16 11:30 Urine,Clean Catch Urine Culture - Preliminary NO GROWTH AFTER 24 HOURS Resulted Intake and Output 04/14/16 04/15/16 19:00 07:00 Intake Total 900 ml 1445 ml Output Total 300 ml 2050 ml Balance 600 ml -605 ml Intake Oral 520 ml IV Total 900 ml 925 ml Output Urine Total 300 ml 2050 ml Objective General Appearance: thin, agitated EENT: PERRL/EOMI, normal ENT inspection Neck: non-tender, normal alignment, supple Cardiovascular: normal peripheral pulses, normal rate, regular rhythm, no gallop/murmur, no JVD Respiratory/Chest: chest wall non-tender, lungs clear, normal breath sounds, no respiratory distress, no accessory muscle use Abdomen: normal bowel sounds, non tender, soft, no organomegaly, no mass Extremities: normal range of motion, non-tender 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 Await urine culture results-see ID note. (3) Syncope (4) Diabetes mellitus Assessment & Plan: Cont novolog sliding scale. (5) Parkinson disease (6) Hypokalemia Assessment & Plan: Replace potassium Status: progressing Assessment/Plan Discharge planning: Home health PARKER CAMERON Apr 15, 2016 11:16
[2016-04-15 12:00] VITALS: BP 135/79
--- NOTE | 2016-04-15 14:44 | Diagnostic Imaging Report ---
APPROVED REPORT CPT Code: 54163 Present Symptoms Comments: R/O DVT Pain BILATERAL: Imaging reveals a patent deep venous system bilaterally. There is no evidence of thrombus within the femoral, popliteal or tibial segments. The greater saphenous veins are also within normal limits. Doppler indicates normal spontaneous flow within these segments.
[2016-04-15 17:00] VITALS: BP 128/93
--- NOTE | 2016-04-15 17:20 | Pulmonology Progress Note ---
Assessment/Plan Problems: (1) Leukocytosis (2) Fall (3) Hypokalemia (4) Parkinson disease (5) Diabetes (6) Dementia Assessment/Plan Assessment/Plan pt/ot check cultures empiric antibiotics swallow study f/u electrolytes IV fluids supplement electrolytes dvt prophylaxis sliding scale Subjective ROS Limited/Unobtainable: Yes Constitutional: Reports: anorexia, fatigue Respiratory: Reports: dyspnea on exertion, productive cough, shortness of breath, sputum Neurologic: Reports: confusion, weakness Allergies: Coded Allergies: No Known Allergies (Unverified , 04/12/16) Objective Last 24 Hour Vital Signs Date Time Temp Pulse Resp B/P Pulse Ox O2 Delivery O2 Flow Rate FiO2 04/15/16 12:00 97.5 97 18 135/79 98 Room Air 04/15/16 08:48 94 134/85 04/15/16 08:04 97.2 94 18 134/85 96 Room Air 04/15/16 06:29 97.7 04/15/16 04:00 97.7 94 18 134/87 95 Room Air 04/15/16 00:00 97.5 99 18 140/84 94 Room Air 04/14/16 19:00 97.5 91 20 131/81 94 Room Air Intake and Output 04/14/16 04/15/16 19:00 07:00 Intake Total 900 ml 1445 ml Output Total 300 ml 2050 ml Balance 600 ml -605 ml Intake Oral 520 ml IV Total 900 ml 925 ml Output Urine Total 300 ml 2050 ml General Appearance: no acute distress HEENT: normocephalic, atraumatic, PERRL Respiratory/Chest: chest wall non-tender, decreased breath sounds, accessory muscle use, rhonchi Cardiovascular: normal peripheral pulses, normal rate, regular rhythm, no JVD Abdomen: normal bowel sounds, soft, non tender, no organomegaly Extremities: no cyanosis Skin: no rash, lesions 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/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, disoriented Microbiology Date/Time Source Procedure Growth Status 04/13/16 11:30 Urine,Clean Catch Urine Culture - Preliminary NO GROWTH AFTER 24 HOURS Resulted Laboratory Tests 04/15/16 05:40: White Blood Count 15.5H, Red Blood Count 4.28L, Hemoglobin 13.4L, Hematocrit 38.8L, Mean Corpuscular Volume 91, Mean Corpuscular Hemoglobin 31.2H, Mean Corpuscular Hemoglobin Concent 34.5, Red Cell Distribution Width 12.3, Platelet Count 379, Mean Platelet Volume 6.1L, Neutrophils (%) (Auto) , Lymphocytes (%) ( Auto) , Monocytes (%) (Auto) , Eosinophils (%) (Auto) , Basophils (%) (Auto) , Differential Total Cells Counted 100, Neutrophils % (Manual) 48, Lymphocytes % ( Manual) 23, Monocytes % (Manual) 9, Eosinophils % (Manual) 19H, Basophils % ( Manual) 0, Band Neutrophils 1, Platelet Estimate Adequate, Platelet Morphology Normal, Red Blood Cell Morphology Normal, Sodium Level 137, Potassium Level 4.3 , Chloride Level 96L, Carbon Dioxide Level 24, Anion Gap 17H, Blood Urea Nitrogen 7, Creatinine 0.8, Estimat Glomerular Filtration Rate , Glucose Level 144H, Calcium Level 8.4L Current Medications Medications (Trade) Dose Ordered Sig/Aaron Route PRN Reason Start Time Stop Time Status Last Admin Dose Admin Acetaminophen (Tylenol) 650 mg Q4H PRN ORAL fever 04/12/16 07:00 05/12/16 06:59 Al Hydroxide/Mg Hydroxide (Mylanta II) 30 ml Q6H PRN ORAL dyspepsia 04/12/16 07:00 05/12/16 06:59 Amlodipine Besylate (Norvasc) 10 mg DAILY ORAL 04/12/16 09:00 05/12/16 08:59 04/15/16 08:48 Carbidopa/Levodopa (Sinemet 25/100) 1 ea THREE TIMES A DAY ORAL 04/12/16 09:00 05/12/16 08:59 04/15/16 12:56 Dextrose STAT PRN IV Hypoglycemia 04/12/16 07:00 05/12/16 06:59 Insulin Aspart (NovoLOG) BEFORE MEALS AND HS SUBQ 04/12/16 11:30 05/12/16 11:29 04/15/16 12:11 Levofloxacin (Levaquin) 100 ml @ 100 mls/hr Q24H IVPB 04/13/16 06:00 04/20/16 05:59 04/15/16 05:58 Menthol/Methyl Salicylate 1 applic 1 applic FOUR TIMES A DAY TOPIC 04/12/16 14:00 05/12/16 13:59 04/15/16 12:56 Morphine Sulfate (Morphine Sulfate) 1 mg Q4H PRN IVP For Pain 04/12/16 07:00 04/19/16 06:59 04/15/16 05:59 Ondansetron HCl (Zofran) 4 mg Q6H PRN IVP Nausea & Vomiting 04/12/16 07:00 05/12/16 06:59 Polyethylene Glycol (Miralax) 17 gm HSPRN PRN ORAL Constipation 04/12/16 07:00 05/12/16 06:59 04/12/16 22:17 Potassium Chloride/Sodium Chloride (KCl/Sodium Chloride 1000ml bag) 1,015 ml @ 75 mls/hr [id number] IV 04/12/16 09:00 05/12/16 08:59 04/15/16 04:33 Quetiapine Fumarate (SEROquel) 25 mg BEDTIME ORAL 04/13/16 21:00 05/13/16 20:59 04/14/16 20:49 Quetiapine Fumarate (SEROquel) 25 mg Q8H PRN ORAL Agitation 04/13/16 16:15 05/13/16 16:14 Zolpidem Tartrate (Ambien) 5 mg HSPRN PRN ORAL Insomnia 04/12/16 07:00 05/12/16 06:59 04/12/16 22:17 VAMSI LEMONS Apr 15, 2016 17:20
[2016-04-15 20:00] VITALS: BP 138/84
[2016-04-16] VITALS: BP 129/86
[2016-04-16 04:00] VITALS: BP 135/82
[2016-04-16] MEDS: NovoLOG Insulin Flexpen SUBQ SCH ×2 (06:30→12:00)
[2016-04-16 06:35] LABS: MEAN CORPUSCULAR HEMOGLOBIN 31.4 PG (27.0-31.0); MEAN CORPUSCULAR HGB CONC 34.5 G/DL (32.0-36.0); MEAN CORPUSCULAR VOLUME 91 FL (80-99); MEAN PLATELET VOLUME 5.9 FL (6.5-10.1); PLATELET COUNT 389 K/UL (150-450); RED BLOOD COUNT 4.13 M/UL (4.70-6.10); RED CELL DISTRIBUTION WIDTH 12.4 % (11.6-14.8); WHITE BLOOD COUNT 13.6 K/UL (4.8-10.8)
[2016-04-16 07:04] LABS: ANION GAP 16 (5-15); CALCIUM 8.6 mg/dL (8.6-10.2); CARBON DIOXIDE 22 mEQ/L (20-30); CHLORIDE 99 mEQ/L (98-107); CREATININE 0.9 mg/dL (0.7-1.2); HEMOLYSIS 5; POTASSIUM 4.8 mEQ/L (3.4-4.9); SODIUM 137 mEQ/L (135-145)
--- NOTE | 2016-04-16 08:02 | Infectious Diseases Prog Note ---
Assessment/Plan Assessment/Plan ASSESSMENT: 85 y/o male with: // Mild pyuria, bacteruria, possible UTI - delayed UCx Neg // Leukocytosis - mild, improved, afebrile, - CXR: NAF, doppler(-) DVT // SP fall - CT Head: Chronic and age-related changes. Negative for acute intracranial bleed or mass effect - B hip XR: Negative. Note, however, that in elderly osteopenic patients, nondisplaced fractures can easily be occult. // DM2 // Parkinson's // NKDA // DNR PLAN: - continue empiric levaquin d# , upon Dc will change to PO - f/u delayed blood cultures - monitor CBC, temperatures - monitor BMP - fall precautions Subjective Constitutional: Denies: anorexia, chills, drenching sweats, fatigue, fever, no symptoms, other Allergies: Coded Allergies: No Known Allergies (Unverified , 04/12/16) Objective Vital Signs Last 24 Hour Vital Signs Date Time Temp Pulse Resp B/P Pulse Ox O2 Delivery O2 Flow Rate FiO2 04/16/16 04:00 97.9 107 20 135/82 97 Room Air 04/16/16 00:00 98.2 96 18 129/86 97 Room Air 04/15/16 20:00 96.0 104 22 138/84 97 Room Air 04/15/16 17:00 98.1 113 22 128/93 96 04/15/16 12:00 97.5 97 18 135/79 98 Room Air 04/15/16 08:48 94 134/85 04/15/16 08:04 97.2 94 18 134/85 96 Room Air Height (Feet): 5 Height (Inches): 5.00 Weight (Pounds): 135 HEENT: atraumatic Respiratory/Chest: lungs clear Cardiovascular: regular rhythm Abdomen: no organomegaly Microbiology Date/Time Source Procedure Growth Status 04/13/16 11:30 Urine,Clean Catch Urine Culture - Final NO GROWTH AFTER 48 HOURS Complete Laboratory Tests Test 04/16/16 04:55 White Blood Count 13.6 K/UL (4.8-10.8) H Red Blood Count 4.13 M/UL (4.70-6.10) L Hemoglobin 13.0 G/DL (14.2-18.0) L Hematocrit 37.6 % (42.0-52.0) L Mean Corpuscular Volume 91 FL (80-99) Mean Corpuscular Hemoglobin 31.4 PG (27.0-31.0) H Mean Corpuscular Hemoglobin Concent 34.5 G/DL (32.0-36.0) Red Cell Distribution Width 12.4 % (11.6-14.8) Platelet Count 389 K/UL (150-450) Mean Platelet Volume 5.9 FL (6.5-10.1) L Neutrophils (%) (Auto) % (45.0-75.0) Lymphocytes (%) (Auto) % (20.0-45.0) Monocytes (%) (Auto) % (1.0-10.0) Eosinophils (%) (Auto) % (0.0-3.0) Basophils (%) (Auto) % (0.0-2.0) Neutrophils % (Manual) Pending Lymphocytes % (Manual) Pending Platelet Estimate Pending Platelet Morphology Pending Sodium Level 137 mEQ/L (135-145) Potassium Level 4.8 mEQ/L (3.4-4.9) Chloride Level 99 mEQ/L (98-107) Carbon Dioxide Level 22 mEQ/L (20-30) Anion Gap 16 (5-15) H Blood Urea Nitrogen 7 mg/dL (7-23) Creatinine 0.9 mg/dL (0.7-1.2) Estimat Glomerular Filtration Rate mL/min (>60) Glucose Level 105 mg/dL (74-106) Calcium Level 8.6 mg/dL (8.6-10.2) Current Medications Medications (Trade) Dose Ordered Sig/Aaron Route PRN Reason Start Time Stop Time Status Last Admin Dose Admin Acetaminophen (Tylenol) 650 mg Q4H PRN ORAL fever 04/12/16 07:00 05/12/16 06:59 Al Hydroxide/Mg Hydroxide (Mylanta II) 30 ml Q6H PRN ORAL dyspepsia 04/12/16 07:00 05/12/16 06:59 Amlodipine Besylate (Norvasc) 10 mg DAILY ORAL 04/12/16 09:00 05/12/16 08:59 04/15/16 08:48 Carbidopa/Levodopa (Sinemet 25/100) 1 ea THREE TIMES A DAY ORAL 04/12/16 09:00 05/12/16 08:59 04/15/16 17:36 Dextrose STAT PRN IV Hypoglycemia 04/12/16 07:00 05/12/16 06:59 Insulin Aspart (NovoLOG) BEFORE MEALS AND HS SUBQ 04/12/16 11:30 05/12/16 11:29 04/15/16 20:33 Levofloxacin (Levaquin) 100 ml @ 100 mls/hr Q24H IVPB 04/13/16 06:00 04/20/16 05:59 04/16/16 04:57 Menthol/Methyl Salicylate 1 applic 1 applic FOUR TIMES A DAY TOPIC 04/12/16 14:00 05/12/16 13:59 04/15/16 20:32 Morphine Sulfate (Morphine Sulfate) 1 mg Q4H PRN IVP For Pain 04/12/16 07:00 04/19/16 06:59 04/15/16 05:59 Ondansetron HCl (Zofran) 4 mg Q6H PRN IVP Nausea & Vomiting 04/12/16 07:00 05/12/16 06:59 Polyethylene Glycol (Miralax) 17 gm HSPRN PRN ORAL Constipation 04/12/16 07:00 05/12/16 06:59 04/12/16 22:17 Potassium Chloride/Sodium Chloride (KCl/Sodium Chloride 1000ml bag) 1,015 ml @ 75 mls/hr [id number] IV 04/12/16 09:00 05/12/16 08:59 04/15/16 20:32 Quetiapine Fumarate (SEROquel) 25 mg BEDTIME ORAL 04/13/16 21:00 05/13/16 20:59 04/15/16 20:32 Quetiapine Fumarate (SEROquel) 25 mg Q8H PRN ORAL Agitation 04/13/16 16:15 05/13/16 16:14 Zolpidem Tartrate (Ambien) 5 mg HSPRN PRN ORAL Insomnia 04/12/16 07:00 05/12/16 06:59 04/12/16 22:17 ABBY CASTELLON M.D. Apr 16, 2016 08:02
[2016-04-16 08:29] LABS: BAND NEUTROPHILS % (MANUAL) 0 % (0-8); BASOPHILS % (MANUAL) 0 % (0-2); EOSINOPHILS % (MANUAL) 24 % (0-3); LYMPHOCYTES % (MANUAL) 11 % (20-45); NEUTROPHILS % (MANUAL) 62 % (45-75); PLATELET ESTIMATE ADEQUATE; PLATELET MORPHOLOGY NORMAL; TOTAL CELLS COUNTED 100
[2016-04-16 08:46] VITALS: BP 136/86
[2016-04-16] MEDS: Sinemet 25/100 tab ORAL SCH ×2 (08:57→12:10)
[2016-04-16] MEDS: Analgesic Balm 15gm TOPIC SCH ×2 (08:57→12:10)
[2016-04-16 12:45] VITALS: BP 120/78
[2016-04-16] MEDS ORDERED: [UNRECOGNIZED DRUG - OTHER] TOPIC (12:46)
[2016-04-16] MEDS ORDERED: AMBIEN5 MG ORAL (12:48)
[2016-04-16] MEDS ORDERED: SEROQUEL50 MG ORAL (12:48)
[2016-04-16] MEDS ORDERED: NOVOLOG100 UNIT/3 SUBQ (12:49)
[2016-04-16] MEDS ORDERED: LEVAQUIN500 MG ORAL ×2 (13:44→14:51)
--- NOTE | 2016-04-16 14:48 | Discharge Summary ---
Discharge Summary Hospital Course Date of Admission Apr 12, 2016 at 05:51 Date of Discharge Admitting Diagnosis fall/weakness JOHN Jurado is a 85 year old male who was admitted on Apr 12, 2016 at 05:51 for Fall/Weakness Hospital Course The patient was seen and examined at bedside and all new and available data was reviewed in the patients chart. at bedside. Last 24 Hour Vital Signs Date Time Temp Pulse Resp B/P Pulse Ox O2 Delivery O2 Flow Rate FiO2 04/16/16 12:45 97.0 111 20 120/78 96 Room Air 04/16/16 08:57 103 136/86 04/16/16 08:46 97.9 103 20 136/86 97 Room Air 04/16/16 04:00 97.9 107 20 135/82 97 Room Air 04/16/16 00:00 98.2 96 18 129/86 97 Room Air 04/15/16 20:00 96.0 104 22 138/84 97 Room Air 04/15/16 17:00 98.1 113 22 128/93 96 General Appearance: awake, alert, responsive, NAD EENT: PERRL/EOMI, normal ENT inspection Neck: non-tender, normal alignment, supple Cardiovascular: normal peripheral pulses, normal rate, regular rhythm, no murmur, no JVD Respiratory/Chest: chest wall non-tender, lungs clear, normal breath sounds, no respiratory distress Abdomen: normal bowel sounds, non tender, soft, no organomegaly, no mass Extremities: normal range of motion, non-tender Neurologic: 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 Signature timestamp does not reflect patient encounter time) Toño Lopez MD Discharge Discharge Disposition Patient was discharged to SNF/Subacute Facility(03) Discharge Diagnoses: Toño Lopez MD Apr 16, 2016 14:48
[2016-04-16] MEDS ORDERED: SEROQUEL25 MG ORAL ×2 (14:51)
[2016-04-17 10:09] LABS: OTHERS PATHOLOGIST COMMENT
--- NOTE | 2016-04-17 10:48 | Physician Query ---
PLEASE COMPLETE DOCUMENT BEFORE SIGNING Dear Dr. Toño Lopez Date: April Knowledge Architect/CDS Name: Geovani Giang CDS Knowledge Architect/CDS Phone No.: [phone] Exercise your independent professional judgment when responding to the query. Questions asked do not imply a particular answer is desired or expected. We greatly appreciate your clarification on this issue. CLINICAL DOCUMENTATION STATES: "85-year-old diabetic and demented male admitted on 04/12/2016 status post fall from bed. He has associated mild leukocytosis and no fevers. Leukocytosis has improved this morning. Urinalysis suggests possible UTI with mild pyuria and bacteriuria. No urine culture was sent. Blood cultures are pending. He has been started on empiric Levaquin and ID now consulted to assist in management" documented in Dr. Howard Reyes's notes. CLINICAL FINDINGS SHOW: WBC= 14.1, 12.6, 13.2, 15.5, 13.6 [place] = 104/min, 96, 107, 103, 103, 111/min Please respond to the following question: Is there a diagnosis specific to these symptoms or values? If so please state below. PHYSICIAN RESPONSE: Condition Present on Admission: [x] Yes [] No []Clinically Undeterminable Please also document in your Progress Notes and/or Discharge Summary and indicate if the condition was present on admission. Toño Lopez MD Date/Time [facility]
--- NOTE | 2016-04-18 12:48 | Discharge Summary ---
Discharge Summary Hospital Course Date of Admission Apr 12, 2016 at 05:51 Date of Discharge Apr 16, 2016 at 15:50 Admitting Diagnosis fall/weakness JOHN Jurado is a 85 year old male who was admitted on Apr 12, 2016 at 05:51 for Fall/Weakness Hospital Course [id number] Discharge Discharge Disposition Patient was discharged to SNF/Subacute Facility(03) Discharge Diagnoses: Rose Lawrence NP Apr 18, 2016 12:48
--- NOTE | 2016-04-19 03:20 | Discharge Summary 2 SIG ---
DATE OF ADMISSION: 04/12/2016 DATE OF DISCHARGE: 04/16/2016 CONSULTANTS: 1. Jacques Hadley M.D. 2. Casey Sandra M.D. BRIEF HOSPITAL COURSE: The patient is an 85-year-old male, presented to ED, brought in by EMS secondary to a syncopal episode. Evaluation at ED showed no acute fracture on bilateral hips and pelvic area. Laboratories showed leukocytosis with urinalysis showing urine WBC 5 to 10 and leukocyte esterase +1 with mild pyuria and bacteriuria. Chest x-ray showed no acute findings. He was started empirically on IV Levaquin and potassium was repleted. Venous duplex of lower extremity was negative. CT scan of the head was negative for acute intracranial bleed or mass effect with chronic age-related changes. Urine culture did not isolate any growth. The patient was eventually discharged to nursing facility. FINAL DIAGNOSES: 1. Urinary tract infection present on admission. 2. Syncope. 3. Hypertension. 4. Diabetes mellitus. 5. Hypokalemia. 6. Parkinson disease. 7. Do Not Resuscitate. Toño Lopez M.D. I have been assigned to dictate discharge summary on this account and I was not involved in the patient's management. Rose Lawrence N.P. DR: SAV JOB#: [id number] CC:
== END 2016-04-16 15:50 | DRG 690 ==
LOC: EDBD 04:54 → EMR 04:59 → 4W 05:51 → EDBEDREQ 07:31 → 4W 11:01
DX: N39.0 Urinary tract infection, site not specified (principal); G20 Parkinson's disease; F02.80 Dementia in other diseases classified elsewhere, unspecified severity, without behavioral disturbance, psychotic disturbance, mood disturbance, and anxiety; I10 Essential (primary) hypertension; E87.6 Hypokalemia; Z91.81 History of falling; R55 Syncope and collapse; E11.9 Type 2 diabetes mellitus without complications; Z66 Do not resuscitate
CPT/HCPCS: 36415; 70450; 71010; 72170; 73502; 80048; 80053; 80061; 81003; 82248; 82550; 82553; 82962; 84443; 84484; 85007; 85025; 87040; 87086; 93005; 93970; J1815; J8499